=== PATIENT | male | born 1990 ===

== ENCOUNTER 2019-02-28 18:14 | Emergency (ER) | payer SELFPAY ==
[2019-02-28 18:31] VITALS: BMI 29.5
[2019-02-28] MEDS ORDERED: Sodium Chloride 0.9% 1,000 ML IV ONE ×2 (18:55→20:26)
[2019-02-28] MEDS ORDERED: Sodium Chloride 0.9% 1,000 ML ONE ×2 (19:02→20:35)
[2019-02-28 19:43] LABS: URINE BACTERIA RARE (<OCC); URINE BILIRUBIN NEGATIVE (NEGATIVE); URINE BLOOD NEGATIVE (NEGATIVE); URINE CLARITY Clear (Clear); URINE COLOR Yellow (YELLOW); URINE GLUCOSE (UA) NORMAL (Normal); URINE LEUKOCYTE ESTERASE NEG Leu/uL (Negative); URINE PROTEIN NEGATIVE (NEGATIVE); URINE UROBILINOGEN NORMAL mg/dL (0.2-1.0)
[2019-02-28 19:56] LABS: BARBITURATES, UR NEGATIVE (NEGATIVE); BENZODIAZEPINES, UR NEGATIVE (NEGATIVE); OPIATES, UR NEGATIVE (NEGATIVE); PHENCYCLIDINE, UR NEGATIVE (NEGATIVE)
--- NOTE | 2019-02-28 20:37 | C.PDOC ---
History Of Present Illness 28 year old male presents to the ED s/p syncopal episode that occurred earlier tonight. Patient states that he was at restaurant and on his way to the bathroom when he felt dizzy and had a syncopal episode. Patient reports no seizure activity. Patient returned to baseline quickly and had a bowel movement with some diarrhea. Patient states that he currently feels better. He states that he hasn't been eating well because he is trying to lose weight. He reports taking no diet supplements. Patient currently denies vomiting, dizziness, and abdominal pain. Time Seen by Provider: 02/28/19 20:15 Chief Complaint (Nursing): Syncope History Per: Patient History/Exam Limitations: no limitations Onset/Duration Of Symptoms: Hrs Current Symptoms Are (Timing): Gone Activity At Onset Of Symptoms: Walking Associated Symptoms Preceding Syncopal Episode: Other (dizziness) Seizure Or Post-ictal Symptoms: None Possible Causative Factor(s): Decreased PO Intake Past Medical History Reviewed: Historical Data, Nursing Documentation, Vital Signs Vital Signs: Last Vital Signs Temp 98.9 F 02/28/19 18:27 Pulse 101 H 02/28/19 20:23 Resp 13 02/28/19 20:23 BP 118/61 02/28/19 20:23 Pulse Ox 100 02/28/19 20:23 - Medical History PMH: No Chronic Diseases Surgical History: No Surg Hx Family History: States: Unknown Family Hx - Social History Hx Alcohol Use: Yes Hx Substance Use: No - Immunization History Hx Tetanus Toxoid Vaccination: No Hx Influenza Vaccination: No Hx Pneumococcal Vaccination: No Review Of Systems Constitutional: Negative for: Fever, Chills, Weakness Gastrointestinal: Positive for: Diarrhea. Negative for: Nausea, Vomiting, Abdominal Pain Neurological: Negative for: Headache, Dizziness Physical Exam - Physical Exam Appears: Well, Non-toxic, No Acute Distress Skin: Normal Color, Warm, Dry Head: Atraumatic, Normacephalic Neck: Normal ROM, Supple Chest: Symmetrical, No Deformity Cardiovascular: Rhythm Regular, No Murmur Respiratory: No Accessory Muscle Use, No Rales, No Rhonchi, No Wheezing Gastrointestinal/Abdominal: Soft, No Tenderness Extremity: Capillary Refill (<2 seconds) Pulses: Left Radial: Normal, Right Radial: Normal Neurological/Psych: Oriented x3, Normal Speech, Normal Cognition ED Course And Treatment - Laboratory Results Result Diagrams: 02/28/19 20:43 02/28/19 21:05 Lab Results: Urine Color Yellow (YELLOW) 02/28/19 19:32 Urine Clarity Clear (Clear) 02/28/19 19:32 Urine pH 7.0 (5.0-8.0) 02/28/19 19:32 Ur Specific [place] 1.013 (1.003-1.030) 02/28/19 19:32 Urine Protein Negative mg/dL (NEGATIVE) 02/28/19:32 Urine Glucose (UA) Normal mg/dL (Normal) 02/28/19 19:32 Urine Ketones Negative mg/dL (NEGATIVE) 02/28/19 19:32 Urine Blood Negative (NEGATIVE) 02/28/19: Urine Nitrate Negative (NEGATIVE) 02/28/19: Urine Bilirubin Negative (NEGATIVE) 02/28/19 19:32 Urine Urobilinogen Normal mg/dL (0.2-1.0) 02/28/19 19:32 Ur Leukocyte Esterase Neg Quirino/uL (Negative) 02/28/19:32 Urine WBC (Auto) 2 /hpf (0-5) 02/28/19:32 Urine RBC (Auto) 3 /hpf (0-3) 02/28/19:32 Urine Bacteria Rare (<OCC) 02/28/19 19:32 ECG: Interpreted By Me, Viewed By Me ECG Rhythm: Sinus Rhythm Interpretation Of ECG: Normal axis. Normal interval. No ST- elevation. No ventricular ectopy. No PACs. Rate From EC O2 Sat by Pulse Oximetry: 100 (in RA) Medical Decision Making Medical Decision Making: Impression: 28 year old male presents to the ED s/p syncopal episode that occurred earlier tonight. Plan: EKG ordered for patient Labs ordered with drug screen, CMP, CBC, and UA Patient given IV fluids Patient with no complaints throughout ED course. AAOx3, no dizziness, no syncope, ambulated without difficulty. Results reviewed and discussed with patient. Advised staying hydrated and not skipping meals. Patient stable for discharge home. HR 82, BP 132/84 at discharge. Disposition - Disposition Disposition: HOME/ ROUTINE Disposition Time: 22:04 Condition: GOOD Additional Instructions: AMANDA BUSH, thank you for letting us take care of you today. Your provider was Bettina Jiménez MD and you were treated for SYNCOPE. The emergency medical care you received today was directed at your acute symptoms. I f you were prescribed any medication, please fill it and take as directed. It may take several days for your symptoms to resolve. Return to the Emergency Department if your symptoms worsen, do not improve, or if you have any other problems. Please contact your doctor or call one of the physicians/clinics you have been referred to that are listed on the Patient Visit Information form that is inclu ded in your discharge packet. Bring any paperwork you were given at discharge with you along with any medications you are taking to your follow up visit. Our treatment cannot replace ongoing medical care by a primary care provider outside of the emergency department. Thank you for allowing the [facility] team to be part of your care today. If you had an X-Ray or CT scan: A Radiologist will review the ED reading if any change in treatment is needed we will contact you. If you had a blood, urine, or wound culture: It will take several days for the results, if any change in treatment is needed we will contact you. If you had an STI test: It will take 48 hours for the results. Please call after 1 week if you have not heard back. Instructions: Syncope (Fainting) (DC) Forms: Common Curriculum (Hungarian) - Clinical Impression Clinical Impression: Syncope - Scribe Statement The provider has reviewed the documentation as recorded by the Scribe (Georgina Murry) All medical record entries made by the Scribe were at my direction and personal ly dictated by me. I have reviewed the chart and agree that the record accurately reflects my personal performance of the history, physical exam, medical decision making, and the department course for this patient. I have also personally directed, reviewed, and agree with the discharge instructions and disposition.
[2019-02-28 20:51] LABS: BASO % 0.3 % (0.0-2.0); EOS # 0.1 K/uL (0.0-0.7); EOS % 0.6 % (0.0-4.0); LYMPH # 1.5 K/uL (1.0-4.3); LYMPH % 15.7 % (20.0-40.0); MEAN CELL VOLUME 92.6 fL (80.0-94.0); MEAN CORPUSCULAR HGB CONC 33.5 g/dL (33.0-37.0); MEAN PLATELET VOLUME 7.8 fL (7.2-11.7); MONO % 10.6 % (0.0-10.0); NEUT # 6.8 K/uL (1.8-7.0); NEUT % 72.8 % (50.0-75.0); RBC 4.84 Mil/uL (4.40-5.90); RED CELL DISTRIBUTION WIDTH 13.9 % (11.5-14.5); WHITE BLOOD COUNT 9.3 K/uL (4.8-10.8)
[2019-02-28 21:20] LABS: ALB/GLOB RATIO 1.4 (1.0-2.1); ALBUMIN 3.7 g/dL (3.5-5.0); ALT/SGPT 78 U/L (21-72); AST/SGOT 49 U/L (17-59); BLOOD UREA NITROGEN 11 mg/dL (9-20); CALCIUM 8.4 mg/dl (8.6-10.4); GFR NON-AFRICAN AMERICAN > 60
[2019-02-28 22:05] VITALS: BP 132/84; PULSE 82; RESP 16; TEMP 98.6
[2019-02-28 23:12] VITALS: O2SAT 100
== END 2019-02-28 22:05 | disposition home or self-care (01) ==
LOC: C.ER 18:14
DX: R55 Syncope and collapse (principal)
CPT/HCPCS: 36415; 80053; 81001; 82948; 83735; 84100; 85025; 96360; 96361; 99285; G0480; J7030